=== PATIENT | male | born 1945 | race Caucasian/White ===

== ENCOUNTER 2020-11-09 21:14 | Emergency (ER) | payer MEDICARE, MEDICAID ==
[~2020-11-09] VITALS: Ht 182.9 cm; Wt 78.5 kg
[2020-11-09 21:18] VITALS: BP 168/70
--- NOTE | 2020-11-09 21:28 | NUR ---
MELVIN FROM [facility] ON [address] [facility] FOR [facility]ITNESSED [facility]. PER REPORT STAFF AT HOME HELPED PT ONTO TOILET FROM WHEELCHAIR AND PT SLID OFF TOILET AND HIT HEAD ON EDGE OF BATHTUB. NO LOC AND PT TAKES DAILY ASPIRIN. BLEEDING CONTROLLED. PER REPORT PTS BEHAVIOR IS AT BASELINE. PT IS NONVERBAL BUT PER REPORT IS ORIENTED TO NAME AND . PT NOT ANSWERING QUESTIONS CURRENTLY.
--- NOTE | 2020-11-09 21:29 | NUR ---
PT TO CT
[2020-11-09] MEDS ORDERED: NEOSPORIN OINT. PKT 1 PACKET ONE (21:44)
--- NOTE | 2020-11-09 22:14 | NUR ---
verbal order for debrox ear drops for bilat ears, verbal order repeated.
[2020-11-09] MEDS ORDERED: CARBAMIDE PEROXIDE EAR DROPS 6.5%, 15ML ONE (22:20)
[2020-11-09] MEDS ORDERED: CARBAMIDE PEROXIDE EAR DROPS 6.5%, 15ML EACH EAR ONE (22:30)
--- NOTE | 2020-11-09 23:07 | NUR ---
Patient and Caregiver given discharge instructions and they have confirmed that they understand the instructions. Patient picked up by caregiver from home. Patient is non ambulatory at baseline and helped in wheelchair and wheeled out to car. NAD, all questions answered appropriately, denies additional needs at this time. No personal belongings left in room after discharge.
== END 2020-11-09 23:09 | disposition home or self-care (01) ==
LOC: ED 21:42
DX: S01.81XA Laceration without foreign body of other part of head, initial encounter (principal); S09.8XXA Other specified injuries of head, initial encounter; H61.21 Impacted cerumen, right ear; X58.XXXA Exposure to other specified factors, initial encounter; Y93.89 Activity, other specified; Y92.89 Other specified places as the place of occurrence of the external cause; Y99.8 Other external cause status
CPT/HCPCS: 12011; 70450; 99284